=== PATIENT | male | born 1975 | race African-American/Black ===

== ENCOUNTER 2016-12-01 09:49 | Emergency (ER) | payer SELFPAY ==
[~2016-12-01] VITALS: Ht 182.9 cm; Wt 70.0 kg
[2016-12-01 09:50] VITALS: BP 143/91; PULSE 70; RESP 20; TEMP 97.3; O2SAT 97
[2016-12-01 09:57] VITALS: BP 156/96; PULSE 86; RESP 18; TEMP 98.6; O2SAT 99
[2016-12-01] MEDS ORDERED: SODIUM CHLORIDE 0.9% FLUSH 10 ML FLUSH IVF PRN (10:15)
[2016-12-01 10:19] VITALS: O2SAT 100
--- NOTE | 2016-12-01 10:26 | PD ---
HPI Chief Complaint: Chest Pain Time Seen by Provider: 10:07 Travel History International Travel<30 days: No Contact w/Intl Traveler<30days: No Traveled to known affect area: No History of Present Illness HPI This patient had a very brief and very atypical spell of chest pain this morning. It was nonexertional. Located in the left lower chest. It was a very sharp sensation like a needle sticking him. It lasted about 5 seconds and resolved. He has no cardiac history. He feels okay now. He also had a similar pain in the epigastric region that lasted a few seconds and resolved. He currently feels well. Symptom severity is mild. Duration as noted was literally seconds PFSH Past Medical History Medical History: Denies Significant Hx Diminished Hearing: No Tetanus Vaccination: Never Vaccinated Influenza Vaccination: No ?: Not Past Surgical History Surgical History: No Previous Surgery Social History Alcohol Use: Yes (OCC) Tobacco Use: Yes (1 PPD) Substance Use: No Allergies-Medications (Allergen,Severity, Reaction): Coded Allergies: No Known Allergies (Unverified , 12/01/16) Reported Meds & Prescriptions Reported Meds & Active Scripts Active No Active Prescriptions or Reported Medications Review of Systems General / Constitutional: No: Fever Eyes: No: Visual changes HENT: No: Headaches Cardiovascular: Positive: Chest Pain or Discomfort Respiratory: No: Shortness of Breath Gastrointestinal: Positive: Abdominal Pain Genitourinary: No: Dysuria Musculoskeletal: No: Pain Skin: No Rash Neurologic: No: Weakness Psychiatric: No: Depression Endocrine: No: Polydipsia Hematologic/Lymphatic: No: Easy Bruising Physical Exam Narrative GENERAL: Well-nourished, well-developed patient in no apparent distress. SKIN: Warm and dry. HEAD: Atraumatic. Normocephalic. EYES: Pupils equal and round. No scleral icterus. No injection or drainage. ENT: No nasal bleeding or discharge. Mucous membranes pink and moist. NECK: Trachea midline. No JVD. CARDIOVASCULAR: Regular rate and rhythm. No murmur appreciated. RESPIRATORY: No accessory muscle use. Clear to auscultation. Breath sounds equal bilaterally. GASTROINTESTINAL: Abdomen soft, non-tender, nondistended. Hepatic and splenic margins not palpable. MUSCULOSKELETAL: No obvious deformities. No clubbing. No cyanosis. No edema. NEUROLOGICAL: Awake and alert. No obvious cranial nerve deficits. Motor grossly within normal limits. Normal speech. PSYCHIATRIC: Appropriate mood and affect; insight and judgment normal. Data Data Last Documented VS Vital Signs Date Time Temp Pulse Resp B/P Pulse Ox O2 Delivery O2 Flow Rate FiO2 12/01/16 12:22 79 16 146/72 98 Room Air 12/01/16 09:57 98.6 Orders Electrocardiogram (12/01/16 ) Basic Metabolic Panel (Bmp) (12/01/16 10:14) Ckmb (Isoenzyme) Profile (12/01/16 10:14) Complete Blood Count With Diff (12/01/16 10:14) Troponin I (12/01/16 10:14) Ecg Monitoring (12/01/16 10:14) Bilateral Bp Monitoring (12/01/16 10:14) Iv Access Insert/Monitor (12/01/16 10:14) Oximetry (12/01/16 10:14) Oxygen Administration (12/01/16 10:14) Sodium Chloride 0.9% Flush (Ns Flush) (12/01/16 10:15) CKMB (12/01/16 10:25) CKMB% (12/01/16 10:25) Labs Laboratory Tests Test 12/01/16 10:25 White Blood Count 7.7 TH/MM3 Red Blood Count 4.72 MIL/MM3 Hemoglobin 14.2 GM/DL Hematocrit 42.4 % Mean Corpuscular Volume 89.8 FL Mean Corpuscular Hemoglobin 30.0 PG Mean Corpuscular Hemoglobin 33.4 % Concent Red Cell Distribution Width 13.5 % Platelet Count 179 TH/MM3 Mean Platelet Volume 9.5 FL Neutrophils (%) (Auto) 58.5 % Lymphocytes (%) (Auto) 30.2 % Monocytes (%) (Auto) 8.4 % Eosinophils (%) (Auto) 2.3 % Basophils (%) (Auto) 0.6 % Neutrophils # (Auto) 4.5 TH/MM3 Lymphocytes # (Auto) 2.3 TH/MM3 Monocytes # (Auto) 0.7 TH/MM3 Eosinophils # (Auto) 0.2 TH/MM3 Basophils # (Auto) 0.0 TH/MM3 CBC Comment DIFF FINAL Differential Comment Sodium Level 142 MEQ/L Potassium Level 3.6 MEQ/L Chloride Level 108 MEQ/L Carbon Dioxide Level 29.7 MEQ/L Anion Gap 4 MEQ/L Blood Urea Nitrogen 6 MG/DL Creatinine 0.97 MG/DL Estimat Glomerular Filtration 103 ML/MIN Rate Random Glucose 84 MG/DL Calcium Level 9.4 MG/DL Total Creatine Kinase 191 U/L Creatine Kinase MB 0.6 NG/ML Troponin I LESS THAN 0.02 NG/ML MDM Medical Decision Making Medical Screen Exam Complete: Yes Emergency Medical Condition: Yes Medical Record Reviewed: Yes Differential Diagnosis Pleurisy, CAD, angina, gastritis, anxiety Narrative Course I have reviewed the patient's electronic medical record. Patient is never been here before IV placed I reviewed the EKG which shows sinus rhythm and no ST elevation. Extended cardiac monitoring shows sinus rhythm without ectopy CBC is normal Metabolic profile is normal CK is normal Troponin is normal On recheck the patient is asymptomatic. His chest pain was clearly noncardiac. Was literally 5 seconds of sharp stabbing pain that resolved. He is breathing well with clear lungs and good saturation. I don't think we need to pursue a diagnosis of PE with this particular presentation. I'm recommending primary care follow-up Diagnosis Primary Impression: Non-cardiac chest pain Additional Impression: Abdominal pain Qualified Code: R10.13 - Epigastric pain Additional Instructions: The patient was advised to follow up with their physician and return if they worsen. Med/Other Pt SpecificInfo: Other Scripts No Active Prescriptions or Reported Meds Disposition: 01 DISCHARGE HOME Condition: Stable Thom De La Paz MD Dec 01, 2016 10:26
[2016-12-01 10:44] LABS: AUTOMATED NEUTROPHIL # 4.5 TH/MM3 (1.8-7.7); BASOPHIL % 0.6 % (0.0-2.0); EOSINOPHIL # 0.2 TH/MM3 (0-0.4); EOSINOPHIL % 2.3 % (0.0-4.0); HEMATOCRIT 42.4 % (39.0-51.0); HEMO FLAGS DIFF FINAL; LYMPH % 30.2 % (9.0-44.0); LYMPHOCYTE # 2.3 TH/MM3 (1.0-4.8); MEAN CELL VOLUME 89.8 FL (80.0-100.0); MEAN CORPUSCULAR HGB CONC 33.4 % (32.0-36.0); MONO % 8.4 % (0.0-8.0); NEUT % 58.5 % (16.0-70.0); PLATELET COUNT 179 TH/MM3 (150-450); RED BLOOD COUNT 4.72 MIL/MM3 (4.50-5.90); RED CELL DISTRIBUTION WIDTH 13.5 % (11.6-17.2); WHITE BLOOD COUNT 7.7 TH/MM3 (4.0-11.0)
[2016-12-01 10:56] LABS: ANION GAP 4 MEQ/L (5-15); BICARBONATE 29.7 MEQ/L (21.0-32.0); BLOOD UREA NITROGEN 6 MG/DL (7-18); CHLORIDE 108 MEQ/L (98-107); GLOMERULAR FILTRATION RATE 103 ML/MIN (>89); POTASSIUM 3.6 MEQ/L (3.5-5.1); SODIUM (NA) 142 MEQ/L (136-145)
[2016-12-01 10:59] LABS: CREATINE KINASE 191 U/L (39-308)
[2016-12-01 11:00] VITALS: BP 150/99; PULSE 55; RESP 16; O2SAT 97
[2016-12-01 11:12] LABS: CKMB 0.6 NG/ML (0.5-3.6)
[2016-12-01 12:22] VITALS: BP 146/72; PULSE 79; RESP 16; O2SAT 98
--- NOTE | 2016-12-02 16:25 | EKG ---
Date Performed: 12/01/2016 Time Performed: 10:03:18 PTAGE: 41 years EKG: ECTOPIC ATRIAL RHYTHM ABNORMAL RHYTHM ECG NO PREVIOUS TRACING DOCTOR: Demetria Escalante Interpretating Date/Time 12/02/2016 16:22:07
== END 2016-12-01 13:19 | disposition home or self-care (01) ==
LOC: NEPE 09:49
DX: R07.89 Other chest pain (principal); R10.13 Epigastric pain; R94.31 Abnormal electrocardiogram [ECG] [EKG]; F17.200 Nicotine dependence, unspecified, uncomplicated
CPT/HCPCS: 80048; 82550; 82552; 84484; 85025; 93005